=== PATIENT | male | born 2000 | race African-American/Black ===

== ENCOUNTER 2020-10-26 19:37 | Emergency (ER) | payer OTHER ==
[2020-10-26 20:34] VITALS: BP 149/80
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
== END 2020-10-26 23:50 | disposition home or self-care (01) ==
LOC: ER 19:37
DX: M79.641 Pain in right hand (principal); V43.62XA Car passenger injured in collision with other type car in traffic accident, initial encounter
CPT/HCPCS: 99283